=== PATIENT | female | born 1950 | race Caucasian/White ===

== ENCOUNTER → 2021-07-03 | Outpatient (CLI) | payer OTHER | END | disposition home or self-care (01) | LOC: RAD 10:55 | PROVIDERS: ATTEND Nurse Practitioner Family | DX: J43.9 Emphysema, unspecified (principal) ==

== ENCOUNTER → 2021-07-16 | Outpatient (CLI) | payer OTHER ==
[~2021-07-16] MED LIST: IBUPROFEN600 MG PO; ZITHROMAX250 MG PO
== END | disposition home or self-care (01) ==
LOC: COVID19 16:25
PROVIDERS: ATTEND Internal Medicine
DX: Z11.52 Encounter for screening for COVID-19 (principal)

== ENCOUNTER 2021-07-18 05:43 | Emergency (ER) | payer OTHER ==
[~2021-07-18] VITALS: Ht 154.9 cm; Wt 63.5 kg
[2021-07-18] MEDS ORDERED: IBUPROFEN600 MG PO (08:57)
[2021-07-18] MEDS ORDERED: ZITHROMAX250 MG PO (08:57)
== END 2021-07-18 09:03 | disposition home or self-care (01) ==
LOC: ED 05:43
DX: J01.90 Acute sinusitis, unspecified (principal)

== ENCOUNTER → 2021-11-06 | Outpatient (CLI) | payer OTHER | END | disposition home or self-care (01) | LOC: MAMMO 14:18 | PROVIDERS: ATTEND Internal Medicine | DX: Z12.31 Encounter for screening mammogram for malignant neoplasm of breast (principal) ==

== ENCOUNTER → 2022-01-10 | Outpatient (CLI) | payer OTHER ==
[2022-01-10 09:00] LABS: FREE T4 0.86 ng/dl (0.76-1.46)
[2022-01-10 09:07] LABS: THYROID STIM HORMONE (HS) 2.82 uIU/ml (0.358-4.75)
== END | disposition home or self-care (01) ==
LOC: LAB 08:04
PROVIDERS: ATTEND Internal Medicine
DX: R94.6 Abnormal results of thyroid function studies (principal); E07.9 Disorder of thyroid, unspecified

== ENCOUNTER → 2023-01-02 | Outpatient (CLI) | payer OTHER ==
[2023-01-02 09:04] LABS: BASO # 0.1 10*3/uL (0.0-0.1); BASO % 1.6 % (0.0-1.0); EOS # 0.3 10*3/uL (0.0-0.4); EOS % 6.3 % (1.0-4.0); HEMATOCRIT 39.3 % (37.0-47.0); LYMPH # 1.2 10*3/uL (1.3-4.4); LYMPH % 28.6 % (27.0-41.0); MEAN CORPUSCULAR HGB 30.6 pg (27.0-31.0); MEAN CORPUSCULAR HGB CONC 33.6 g/dl (33.0-37.0); MEAN PLATELET VOLUME 9.9 fl (9.6-12.3); MONO # 0.4 10*3/uL (0.1-1.0); MONO % 8.6 % (3.0-9.0); NEUT # 2.4 10*3/uL (2.3-7.9); NEUT % 54.7 % (47.0-73.0); PLATELET COUNT AUTOMATED 228 10*3/uL (130-400); RED BLOOD COUNT 4.32 10*6/uL (4.10-5.10); RED CELL DISTRI WIDTH 13.2 % (0-14.5); WHITE BLOOD COUNT 4.3 10*3/uL (4.8-10.8)
[2023-01-02 09:45] LABS: FREE T4 1.14 ng/dl (0.89-1.76); POTASSIUM 4.7 mmol/L (3.4-5.1); THYROID STIM HORMONE (HS) 2.009 uIU/ml (0.550-4.780); TOTAL PROTEIN 7.2 gm/dL (6.0-8.0)
== END | disposition home or self-care (01) ==
LOC: LAB 08:11
PROVIDERS: ATTEND Internal Medicine
DX: F33.9 Major depressive disorder, recurrent, unspecified (principal); E03.9 Hypothyroidism, unspecified; F51.01 Primary insomnia; M47.816 Spondylosis without myelopathy or radiculopathy, lumbar region; Z13.0 Encounter for screening for diseases of the blood and blood-forming organs and certain disorders involving the immune mechanism; Z13.1 Encounter for screening for diabetes mellitus; Z13.21 Encounter for screening for nutritional disorder; Z13.220 Encounter for screening for lipoid disorders; Z13.228 Encounter for screening for other metabolic disorders; Z13.29 Encounter for screening for other suspected endocrine disorder; Z13.6 Encounter for screening for cardiovascular disorders; Z13.89 Encounter for screening for other disorder; E55.9 Vitamin D deficiency, unspecified

== ENCOUNTER → 2023-01-12 | Outpatient (CLI) | payer OTHER | END | disposition home or self-care (01) | LOC: MAMMO 07:30 | PROVIDERS: ATTEND Internal Medicine | DX: Z12.31 Encounter for screening mammogram for malignant neoplasm of breast (principal) ==

== ENCOUNTER → 2023-01-27 | Outpatient (CLI) | payer OTHER | LOC: US 01:15 | PROVIDERS: ATTEND Internal Medicine | DX: R79.89 Other specified abnormal findings of blood chemistry (principal) ==

== ENCOUNTER → 2023-02-06 | Outpatient (CLI) | payer OTHER | END | disposition home or self-care (01) | LOC: RAD 01-30 10:30 | PROVIDERS: ATTEND Internal Medicine | DX: M81.0 Age-related osteoporosis without current pathological fracture (principal) ==

== ENCOUNTER → 2023-09-18 | Outpatient (CLI) | payer OTHER | END | disposition home or self-care (01) | LOC: RAD 13:59 | PROVIDERS: ATTEND Internal Medicine | DX: M79.89 Other specified soft tissue disorders (principal) ==

== ENCOUNTER → 2024-01-21 | Outpatient (CLI) | payer OTHER ==
[2024-01-21 07:59] LABS: BASO # 0.1 10*3/uL (0.0-0.1); BASO % 1.2 % (0.0-1.0); EOS # 0.3 10*3/uL (0.0-0.4); HEMATOCRIT 38.9 % (37.0-47.0); LYMPH # 1.3 10*3/uL (1.3-4.4); LYMPH % 27.2 % (27.0-41.0); MEAN CELL VOLUME 92.2 fl (81.0-99.0); MEAN CORPUSCULAR HGB 30.6 pg (27.0-31.0); MEAN CORPUSCULAR HGB CONC 33.2 g/dl (33.0-37.0); MEAN PLATELET VOLUME 9.5 fl (9.6-12.3); MONO # 0.3 10*3/uL (0.1-1.0); MONO % 6.8 % (3.0-9.0); NEUT # 2.8 10*3/uL (2.3-7.9); NEUT % 57.6 % (47.0-73.0); PLATELET COUNT AUTOMATED 243 10*3/uL (130-400); RED BLOOD COUNT 4.22 10*6/uL (4.10-5.10); RED CELL DISTRI WIDTH 13.1 % (0-14.5); WHITE BLOOD COUNT 4.9 10*3/uL (4.8-10.8)
[2024-01-21 08:28] LABS: ALKALINE PHOSPHATASE 80 U/L (46-116); BUN 23 mg/dl (9-23); CHLORIDE 104 mmol/L (98-107); CHOLESTEROL 206 mg/dL (<200); LDL CHOLESTEROL 120 mg/dL (9-159); POTASSIUM 4.2 mmol/L (3.4-5.1); SGPT/ALT 13 U/L (5-49); TOTAL PROTEIN 6.9 gm/dL (6.0-8.0); TRIGLYCERIDES 40 mg/dl (<150)
[2024-01-21 08:48] LABS: VITAMIN D, 25-HYDROXY 43.2 ng/mL (30-100)
== END | disposition home or self-care (01) ==
LOC: LAB 07:38
PROVIDERS: ATTEND Internal Medicine
DX: I10 Essential (primary) hypertension (principal); R07.9 Chest pain, unspecified; E11.9 Type 2 diabetes mellitus without complications; J44.9 Chronic obstructive pulmonary disease, unspecified

== ENCOUNTER → 2024-10-31 | Outpatient (CLI) | payer OTHER ==
[2024-10-31 08:01] LABS: ALKALINE PHOSPHATASE 69 U/L (46-116); BUN 21 mg/dl (9-23); CHLORIDE 102 mmol/L (98-107); CHOLESTEROL 235 mg/dL (<200); LDL CHOLESTEROL 143 mg/dL (9-159); SGPT/ALT 13 U/L (5-49); TOTAL PROTEIN 6.9 gm/dL (6.0-8.0); TRIGLYCERIDES 67 mg/dl (<150)
== END | disposition home or self-care (01) ==
LOC: LAB 07:09
PROVIDERS: ATTEND Family Medicine
DX: Z13.6 Encounter for screening for cardiovascular disorders (principal); E11.9 Type 2 diabetes mellitus without complications